=== PATIENT | male | born 1995 | race Caucasian/White ===

== ENCOUNTER 2024-10-22 09:34 | Emergency (ER) | payer OTHER, SELFPAY ==
[2024-10-22 09:38] VITALS: BP 128/91
--- NOTE | 2024-10-22 10:55 | ED.GENMED ---
History of Present Illness
General
Chief Complaint: Musculo-Skeletal Complaint
Source: patient and family (Mother at bedside)
Exam Limitations: none
Time Seen by Provider: 10/22/24 10:12
Nursing documentation reviewed up to this point in time: agreed with
History of Present Illness
History of Present Illness:
29-year-old male with no clinically significant past medical history except 10 years ago he had a forearm fracture with repair with plates. He is presenting with pain in the left forearm where he had the surgery that was keeping him up for the past
2 nights. He states he has had intermittent mild aches or pains in the arm but never as severe as it has been these past 4 to 5 days. He was in [place] from 07/11 to 08/04 and when he returned home he had a small patch of staph on his forehead for
which he was treated and he also had pinkeye. These have been cleared by early August.
Besides the pain in his arm he has been fatigued, he states he has had diarrhea for the past 2 weeks with kind of a 'stomach bug' feeling with nausea, no vomiting and early on he had a fever but has had none for the past 10 days.Mother at bedside is
concerned for 'some kind of infection in his blood or in his arm.' Other than feeling more tired than usual, and left arm aching, GI symptoms ar improving. He states he's had 3 small non bloody diarrheal stools a day for past several days. Denies
abdominal pain. Denies headache or any other joint pains.
Past History
Past History
ED Past Medical History: None
ED Past Surgical History: Orthopedic
Social History
Tobacco: Non-smoker
Alcohol: Occasional
Personal: Single
Living: with family
Review of Systems
Review of Systems
Allergies reviewed?: Yes
All Other Systems: ROS reviewed and negative except as documented in HPI and ROS
Constitutional: Reports fatigue; Denies fever or chills
EENT: Denies sore throat
Respiratory: Denies trouble breathing
Cardiac: Denies chest pain
ABD/GI: Reports nausea and diarrhea; Denies abdominal pain, vomiting, bloody stools, black stools or anorexia
: Denies dysuria
Musculoskeletal: Reports other (left forearm pain); Denies neck pain or back pain
Skin: Reports no symptoms
Neurological: Reports no symptoms
Phy Exam
Physical Exam
Physical Exam:
GENERAL: No acute distress. A&Ox3.
CONSTITUTIONAL: Afebrile.
EYES: clear, conjunctivae normal
ENMT: moist mucus membranes, Pharynx nl
RESPIRATORY: Regular respirations, nonlabored, lungs clear.
CARDIOVASCULAR: Regular rate and rhythm, no murmurs, no rubs.
GI: Soft, nontender, normal BS
MUSCULOSKELETAL: Non tender LUE, full ROM, n/v intact. No redness or swelling. Moves with ease. Well perfused.
SKIN: Warm, dry, pink
PSYCH: Normal mood and affect. Well kept, interactive and appropriate
NEUROLOGIC: Awake, alert and oriented. No focal neurological deficits
Course
Orders/Labs/Results
Orders:
Orders
10/22/24 09:43
CR Forearm - Left 2 View Urgent
Comment:
Reason For Exam: pain without injury, surgery 10 yrs ago
10/22/24 11:12
Complete Blood Count/With Diff Urgent
Comprehensive Metabolic Panel Urgent
Abnormal Lab Results
10/22/24
11:12
Absolute Monos (auto) 0.9 H 10^3/uL
(0.1-0.6)
Monocytes % 12.4 H %
(1.7-9.3)
10/22/24 11:12
10/22/24 11:12
Vital Signs
Initial and Last Documented VS:
Initial Vital Signs
Temp Pulse Resp BP Pulse Ox
98.0 F 68 18 128/91 100
10/22/24 09:38 06/16/25 09:38 10/22/24 09:38 10/22/24 09:38 10/22/24 09:38
Last Documented Vital Signs
Temp Pulse Resp BP Pulse Ox
98.0 F 68 18 128/91 100
10/22/24 09:38 10/22/24 09:38 10/22/24 09:38 10/22/24 09:38 10/22/24 09:38
MDM/Problems Addressed
MDM/Problems Addressed:
29-year-old male with no clinically significant past medical history except 10 years ago he had a forearm fracture with repair with plates. He is presenting with pain in the left forearm where he had the surgery that was keeping him up for the past
2 nights. He states he has had intermittent mild aches or pains in the arm but never as severe as it has been these past 4 to 5 days. He was in [facility] from 07/11 to 08/04 and when he returned home he had a small patch of staph on his forehead for
which he was treated and he also had pinkeye. These have been cleared by early August.
Besides the pain in his arm he has been fatigued, he states he has had diarrhea for the past 2 weeks with kind of a 'stomach bug' feeling with nausea, no vomiting and early on he had a fever but has had none for the past 10 days.Mother at bedside is
concerned for 'some kind of infection in his blood or in his arm.' Other than feeling more tired than usual, and left arm aching, GI symptoms ar improving. He states he's had 3 small non bloody diarrheal stools a day for past several days. Denies
abdominal pain. Denies headache or any other joint pains.
Afebrile, NAD, totally well appearing.
11:30 AM:
X-ray left forearm shows hardware intact, no acute abnormality.
Mother is concerned about an infection and wants to know if we could do some blood test. CBC, CMP pending
Stool cultures ordered
1140 a.m.
Patient is requesting to leave
CBC CMP normal
Discharge with an outpatient slip for stool for culture and C. difficile.
*Critical Care Note
Total Time (30-74mins, 75-104mins- exclusive of procedures): Not Applicable
ED Attending Note
-
Portions of this chart may have been created with voice recognition software.� Occasional wrong word or��sound alike� substitutions may have occurred due to the inherent limitations of voice recognition software.
Discharge Plan
Departure
Patient Disposition: Home (Routine Discharge)
Date of Disposition: 10/22/24
Time of Disposition: 11:47
Patient with high blood pressure during this ER visit?: No
Condition: Good
Discharge Problem:
Arthralgia of left forearm, Diarrhea, Gastroenteritis
Instructions: Muscle and Bone Pain (DC), Diarrhea in adults - ED discharge instructions
Prescriptions:
No Action
No Current Medications
0
Referrals:
Abebe Vergara MD [Active, Orthopedics] - As needed
Marcela Olguin CRNP [Family Provider, Family Practice]
Activity Restrictions/Additional Instructions:
As we discussed, continue ibuprofen 600 mg, with food, every 6 hours as needed for pain in the arm.
Make an appointment to see Dr. Vergara if your pain is not improving over the next week.
Your blood work is completely normal
If you continue to have diarrhea, drop a specimen off at our outpatient lab to run for testing
Interventions
Interventions:
*Risk Screen - Suicide Last Done: 10/22/24 09:38
*General Assessment Last Done: 10/22/24 09:38
*Nursing Disposition Last Done: 10/22/24 12:00
ED-Musculoskeletal Assessment Last Done: 10/22/24 11:11
Discharge Date and Time
Discharge Date/Time: 10/22/24 12:01
Print Language: GEORGIAN
[2024-10-22 11:30] LABS: % Basophils 0.9 % (0-2); % Immature Granulocytes 0.3 % (0-0.5); % Lymphocytes 21.1 % (20.5-51.1); % Monocytes 12.4 % (1.7-9.3); % Neutrophils 63.3 % (42.2-75.2); Absolute Basophils 0.1 10^3/uL (0-0.2); Absolute Eosinophils 0.2 10^3/uL (0-0.7); Absolute Lymphocytes 1.6 10^3/uL (1.2-3.4); Absolute Monocytes 0.9 10^3/uL (0.1-0.6); Absolute Neutrophils 4.8 10^3/uL (1.4-6.5); Hematocrit 41.6 % (39.0-52.0); Hemoglobin 14.7 g/dL (13.0-18.0); Mean Corp Hgb Conc. 35.3 g/dL (33.0-37.0); Mean Corpuscular Hgb 29.5 pg (27.0-31.0); Mean Corpuscular Volume 83.4 fL (80.0-94.0); Mean Platelet Volume 9.6 fL (7.4-10.4); Nucleated Red Blood Cells % 0 % (-); Platelet Count 372 10^3/uL (130-400); Red Blood Cell Count 4.99 10^6/uL (4.70-6.10); Red Cell Dist. Width 12.4 % (11.5-14.5); White Blood Cell Count 7.6 10^3/uL (4.8-10.8)
[2024-10-22 11:40] LABS: ALT (SGPT) 30 U/L (0-50); AST (SGOT) 26 U/L (17-59); Albumin 4.4 g/dl (3.5-5.0); Alkaline Phosphatase 63 U/L (38-126); Blood Urea Nitrogen 12 mg/dl (9-20); Calcium 9.6 mg/dl (8.4-10.2); Carbon Dioxide 29 mmol/L (22-30); Chloride 106 mmol/L (98-107); Glucose 94 mg/dl (70-99); Potassium 4.8 mmol/L (3.5-5.1); Sodium 141 mmol/L (135-145); Total Bilirubin 0.9 mg/dl (0.2-1.3); Total Protein 7.1 g/dl (6.3-8.2); eGFR > 60.00
== END 2024-10-22 12:01 | disposition home or self-care (01) ==
LOC: EMR 09:34
PROVIDERS: Registered Nurse; EMERGENCY PHYSICIAN Emergency Medicine; FAMILY PHYSICIAN Nurse Practitioner Family
DX: M79.632 Pain in left forearm (principal); K52.9 Noninfective gastroenteritis and colitis, unspecified; Z87.81 Personal history of (healed) traumatic fracture
CPT/HCPCS: 99283; 73090; 80053; 85025